=== PATIENT | female | born 1965 | race Caucasian/White ===

== ENCOUNTER → 2017-01-27 | Outpatient (CLI) | payer BC ==
[~2017-01-27] MED LIST: AMOXICILLIN 50500 MG PO; AMOXICILLIN 8751 TAB PO; DORYX100 PO; DOXYCYCLINE 10100 MG PO; LIPITOR 10MG10 MG PO; NORCO 325 MG-51 TAB PO; ZOFRAN 4MG T4 MG/TAB PO; ZOFRAN ODT4 MG PO
== END ==
LOC: MC.RAD 01-20 08:00
DX: Z12.31 Encounter for screening mammogram for malignant neoplasm of breast (principal)

== ENCOUNTER → 2018-02-23 | Outpatient (CLI) | payer BC | LOC: MC.RAD 08:20 | DX: Z12.31 Encounter for screening mammogram for malignant neoplasm of breast (principal) ==

== ENCOUNTER → 2019-05-11 | Outpatient (CLI) | payer BC | LOC: MC.RAD 10:30 | DX: Z12.31 Encounter for screening mammogram for malignant neoplasm of breast (principal) ==

== ENCOUNTER → 2020-06-20 | Outpatient (CLI) | payer BC | LOC: MC.RAD | DX: Z12.31 Encounter for screening mammogram for malignant neoplasm of breast (principal); Z98.82 Breast implant status ==

== ENCOUNTER → 2021-09-02 | Outpatient (CLI) | payer BC | LOC: MC.RAD 07:34 | DX: Z12.31 Encounter for screening mammogram for malignant neoplasm of breast (principal) ==

== ENCOUNTER → 2021-09-09 | Outpatient (CLI) | payer BC | LOC: MC.RAD 13:55 | DX: Z12.31 Encounter for screening mammogram for malignant neoplasm of breast (principal); N63.20 Unspecified lump in the left breast, unspecified quadrant ==

== ENCOUNTER → 2021-09-16 | Outpatient (CLI) | payer BC | LOC: MC.RAD 12:23 | DX: N63.20 Unspecified lump in the left breast, unspecified quadrant (principal) ==

== ENCOUNTER → 2021-10-28 | Outpatient (CLI) | payer BC ==
[2021-10-30 15:28] LABS: VW FACTOR ACTIVITY 73 % (55 - 200); VW FACTOR ANTIGEN 90 % (55 - 200)
[2021-10-31 10:33] LABS: VW COAG FACTOR 87 % (55 - 200)
== END ==
LOC: COL.LAB 16:53
DX: C50.412 Malignant neoplasm of upper-outer quadrant of left female breast (principal); D69.9 Hemorrhagic condition, unspecified; Z17.0 Estrogen receptor positive status [ER+]

== ENCOUNTER 2022-05-10 13:53 | Inpatient (IN) | payer BC ==
[~2022-05-10] VITALS: Ht 157.5 cm; Wt 67.3 kg
[2022-05-10 14:42] LABS: ALBUMIN 4.6 gm/dL (3.5-5.0); BILIRUBIN,TOTAL 0.6 mg/dL (0.2-1.2); CALCIUM 10.4 mg/dL (8.4-10.2); TOTAL PROTEIN 8.3 gm/dL (6.2-8.1)
[2022-05-10 15:21] LABS: BASO % 0.3 % (0.0-2.0); EOS % 0.1 % (0.0-4.0); GRAN # 10.5 K/mm3 (1.4-6.5); HEMATOCRIT 38.6 % (37.0-47.0); HEMOGLOBIN 13.2 g/dl (12.5-16.0); LYMPH # 0.6 K/mm3 (1.2-3.4); LYMPH % 4.7 % (20.0-51.0); MEAN CELL VOLUME 88 fl (80.0-100.0); MEAN CORPUSCULAR HEMOGLOBIN 30 pg (27-31); MEAN CORPUSCULAR HGB CONC 34 g/dl (33.0-37.0); MEAN PLATELET VOLUME 9.4 fl (7.4-10.4); MONO # 0.8 K/mm3 (0.1-0.6); MONO % 6.6 % (1.7-9.3); PLATELET COUNT 326 K/mm3 (130-400); RED BLOOD COUNT 4.37 M/mm3 (4.10-5.30); REDCELL DISTRIBUTION WIDTH-CV 12.6 % (11.5-14.5)
[2022-05-10 15:25] LABS: ARTERIAL BLD GAS O2 SATURATION 98.9 % (92-100); ARTERIAL BLD GAS TCO2 CT 18.5; ARTERIAL BLOOD GAS BASE EXCESS 1.1 (-2-2)
[2022-05-10 15:26] LABS: ARTERIAL BLOOD GAS PCO2 15.5 mmHg (35-45); ARTERIAL BLOOD GAS pH 7.68 (7.35-7.45)
[2022-05-10 15:41] LABS: COLLECTION METHOD CLEAN CATCH
[2022-05-10 16:01] LABS: URINE APPEARANCE Clear (CLEAR/HAZY); URINE COLOR Yellow (YELLOW)
[2022-05-10 16:02] LABS: PH >= 9.0 (5.0-8.5); URINE GLUCOSE Negative (NEGATIVE); URINE KETONE TRACE (NEGATIVE); URINE PROTEIN(semi-quant) TRACE (NEGATIVE)
[2022-05-10 16:03] LABS: URINE BLOOD TRACE-LYSED (NEGATIVE); URINE NITRATE Positive (NEGATIVE); URINE UROBILINOGEN 0.2 E.U/dL (0.2-1.0)
[2022-05-10 16:24] LABS: MUCOUS Present (NOT PRESENT); SQUAMOUS EPITHELIAL 0-2 /hpf (0-10); URINE BACTERIA None Seen /hpf (NONE SEEN)
[2022-05-11 02:01] LABS: CLOSTRIDIUM DIFF A/B NEG; CLOSTRIDIUM DIFF A/B INTERP No C.diff present
[2022-05-11 06:34] LABS: CALCIUM 8.4 mg/dL (8.4-10.2); CREATININE, serum 0.78 mg/dL (0.57-1.11); POTASSIUM 3.4 mmol/L (3.5-4.5)
[2022-05-11 06:53] LABS: BASO % 0.5 % (0.0-2.0); EOS % 0.2 % (0.0-4.0); GRAN # 6.5 K/mm3 (1.4-6.5); GRAN % 74.6 % (42.2-75.2); LYMPH # 1.7 K/mm3 (1.2-3.4); MEAN CELL VOLUME 89 fl (80.0-100.0); MEAN CORPUSCULAR HGB CONC 34 g/dl (33.0-37.0); MEAN PLATELET VOLUME 9.9 fl (7.4-10.4); MONO # 0.5 K/mm3 (0.1-0.6); MONO % 5.4 % (1.7-9.3); PLATELET COUNT 260 K/mm3 (130-400); RED BLOOD COUNT 3.61 M/mm3 (4.10-5.30)
[2022-05-11 06:55] LABS: HEMATOCRIT 32.1 % (37.0-47.0); HEMOGLOBIN 10.9 g/dl (12.5-16.0); MEAN CORPUSCULAR HEMOGLOBIN 30 pg (27-31)
[2022-05-11 08:54] VITALS: BP 96/44; PULSE 75; TEMP 98
[2022-05-11] MEDS ORDERED: LIPITOR20 MG PO (10:28)
[2022-05-11] MEDS ORDERED: DITROPAN XL10 MG PO (10:28)
[2022-05-11] MEDS ORDERED: ARIMIDEX1 MG PO (10:29)
[2022-05-11] MEDS ORDERED: WELLBUTRIN XL300 M1 PO (10:29)
--- NOTE | 2022-05-11 10:47 | NUR ---
Initial visit; Patient thanked [employer] for looking in on her and helping her feel comfortable and turning off her light. Patient declined Spiritual Care.
[2022-05-11 12:00] VITALS: BP 99/40; PULSE 75; TEMP 98
--- NOTE | 2022-05-11 15:12 | NUR ---
Instantizer Operator met with patient to discuss discharge planning. Patient lives in [place], [place] with her , Mohan (ph#[phone]) and sees Dr. Tali Zavala for primary care in [place]. Patient obtains medications from [facility] with no difficulties. Patient does not use any DME and is independent with [facility]. Patient was interested in DPOA-HC form, SW provided. Patient plans to return home at time of discharge. Discharge Plan: Home
[2022-05-11 16:00] VITALS: BP 101/46; PULSE 72; TEMP 98.1
[2022-05-11 19:43] VITALS: BP 114/56; PULSE 81; TEMP 98.7
[2022-05-12 00:11] VITALS: BP 96/47; PULSE 88; TEMP 99.5
--- NOTE | 2022-05-12 00:54 | NUR ---
Pt is in bed for shift assessment around 1999. A&O x4. Pt reports having nausea and pain that was notified about 1829, but "nobody brought me any pain medication for my back and my headache". Visitor is at bedside during assessment. RAC peripheral line is CDI. Fluids running at this time. All medications were given. Medication for nausea was administered by rn relief chargeLACY Scanlon. No other needs or concerns were reported. Belongings and call light are within reach.
[2022-05-12 04:03] VITALS: BP 107/50; PULSE 80; TEMP 99.4
[2022-05-12 07:17] LABS: BASO % 0.3 % (0.0-2.0); EOS # 0.1 K/mm3 (0.0-0.7); EOS % 0.9 % (0.0-4.0); GRAN # 3.5 K/mm3 (1.4-6.5); GRAN % 54.8 % (42.2-75.2); HEMOGLOBIN 11.1 g/dl (12.5-16.0); LYMPH # 2.3 K/mm3 (1.2-3.4); LYMPH % 35.1 % (20.0-51.0); MEAN CELL VOLUME 90 fl (80.0-100.0); MEAN CORPUSCULAR HEMOGLOBIN 30 pg (27-31); MEAN CORPUSCULAR HGB CONC 33 g/dl (33.0-37.0); MEAN PLATELET VOLUME 10.2 fl (7.4-10.4); MONO # 0.6 K/mm3 (0.1-0.6); MONO % 8.7 % (1.7-9.3); PLATELET COUNT 260 K/mm3 (130-400); RED BLOOD COUNT 3.69 M/mm3 (4.10-5.30)
[2022-05-12 07:21] LABS: HEMATOCRIT 33.3 % (37.0-47.0)
[2022-05-12 07:24] VITALS: BP 106/52; PULSE 71; TEMP 98.7
[2022-05-12 07:28] LABS: CALCIUM 8.7 mg/dL (8.4-10.2); CREATININE, serum 0.76 mg/dL (0.57-1.11); MAGNESIUM 1.7 mg/dL (1.6-2.6); POTASSIUM 3.5 mmol/L (3.5-4.5)
--- NOTE | 2022-05-12 08:23 | NUR ---
Assessment complete. A&Ox3. Denies nausea/diarrhea/shortness of breath. VS stable. C/O headache-rating pain 6/10 on pain scale-meds given per dr corona. Plan of care discussed for this shift to include meds/pain control/calling for questions/concerns. Verbalizes understanding. Call light in reach. Will monitor.
--- NOTE | 2022-05-12 10:30 | NUR ---
Resting in bed eyes closed. No s/s of pain or discomfort noted. Call light in reach. Will monitor.
[2022-05-12 11:28] VITALS: BP 112/48; PULSE 65; TEMP 98
[2022-05-12] MEDS ORDERED: CEFTIN500 MG PO (12:13)
[2022-05-12] MEDS ORDERED: PROBIOTIC ACID1 EAC3 PO (12:14)
--- NOTE | 2022-05-12 12:28 | NUR ---
Patient sitting up in bed eating lunch. States she feels much better after her morning dose of tylenol/ativan. Plan discussed for DC post antibiotics this afternoon. Verbalizes understanding. Call light in reach. Will monitor.
== END 2022-05-12 15:02 | disposition home or self-care (01) | DRG 872 ==
LOC: COL.ER 13:53 → MEDICAL 16:12
PROVIDERS: Emergency Medicine; Physician Assistant; Student in an Organized Health Care Education/Training Program; ADMIT Internal Medicine
DX: A41.9 Sepsis, unspecified organism (principal); E87.3 Alkalosis; E87.20 Acidosis, unspecified; N39.0 Urinary tract infection, site not specified; N12 Tubulo-interstitial nephritis, not specified as acute or chronic; E78.5 Hyperlipidemia, unspecified; B96.20 Unspecified Escherichia coli [E. coli] as the cause of diseases classified elsewhere; Z90.89 Acquired absence of other organs; Z87.442 Personal history of urinary calculi; Z85.3 Personal history of malignant neoplasm of breast; Z90.12 Acquired absence of left breast and nipple
CPT/HCPCS: J0696; J1644; J1650; J2060; J2270; J2405; J2543; J7120; Q9967